=== PATIENT | female | born 1990 ===

== ENCOUNTER 2017-08-09 08:07 | Inpatient (IN) | payer OTHER ==
[2017-08-09 09:00] VITALS: BMI 31.6
[2017-08-09] MEDS ORDERED: Lactated Ringer's 1,000 ML IV ONE (09:15)
[2017-08-09 09:39] LABS: BASO # 0.1 K/uL (0.0-0.2); BASO % 0.7 % (0.0-2.0); EOS % 0.1 % (0.0-4.0); LYMPH # 0.9 K/uL (1.0-4.3); MEAN CELL VOLUME 88.7 fl (81.0-99.0); MEAN CORPUSCULAR HEMOGLOBIN 30.2 pg (27.0-31.0); MONO # 0.4 K/uL (0.0-0.8); MONO % 2.7 % (0.0-10.0); NEUT # 14.2 K/uL (1.8-7.0); NEUT % 90.5 % (50.0-75.0); PLATELET COUNT 267 K/uL (130-400); RBC 4.32 Mil/uL (3.80-5.20); RED CELL DISTRIBUTION WIDTH 13.5 % (11.5-14.5); WHITE BLOOD COUNT 15.6 K/uL (4.8-10.8)
[2017-08-09] MEDS ORDERED: Oxytocin 30 UNITS in Sodium Chloride 0.9% 500 ML IV ONE ×3 (10:00→17:30)
[2017-08-09] MEDS ORDERED: Fentanyl/Bupivacaine HCl 250 ML EPI ONE (11:14)
[2017-08-09 11:23] LABS: BANDS 2 % (0-2); LYMPHOCYTE 6 % (20-50); MONOCYTE 2 % (0-10); NEUTROPHIL 90 % (42-75); PLATELET ESTIMATE NORMAL (NORMAL); TOTAL CELLS COUNTED 100
[2017-08-09] MEDS ORDERED: Lidocaine 1% Inj (20ml) ONE (12:17)
--- NOTE | 2017-08-09 16:03 | OBDS ---
MATERNAL INFORMATION Estimated Blood Loss (ml): 250 Maternal Complications: None Provider Comments: Delivered a baby boy appears term cried spontaneously 9/9, jAF clear Placen ta complete and intact Episiotomy repaired as above, no complications Uterus contracted well, rectal done no complications LABOR SUMMARY EDC: 08/13/2017 00:00 No. Babies in Womb: 1 Attempted: No LABOR INFORMATION Reason for Induction: Not Applicable Onset of Labor: 08/09/2017 09:50 Steroids Given: None Reason Steroids Not Administered: Not Applicable Other Reason Not Administered: n/a MEMBRANES Membranes Rupture Method: Spontaneous Rupture of Membranes: 08/09/2017 08:54 Amniotic Fluid Color: Clear Amniotic Fluid Amount: Moderate Amniotic Fluid Odor: Normal VAGINAL DELIVERY Episiotomy: Median Laceration Extension: First Degree Laceration Type: None Laceration Repair: Yes Laceration Repair Note: episiotomy repaired with 2-0 chromic without any complications Sponge Count Correct: Yes Sharps Count Correct: Yes Count Comment: count correct and verified by RN CSECTION DELIVERY Primary Indication: N/A Secondary Indication: N/A CSection Incision: N/A Uterine Closure: N/A BABY A INFORMATION Forceps: N/A Vacuum Extraction: N/A Shoulder Dystocia : No PRESENTATION/POSITION BABY A Presentation: Cephalic Cephalic Presentation: Vertex Vertex Position: Left Occipital Anterior Breech Presentation: N/A CORD INFORMATION BABY A Nuchal Cord : Around Neck x1, Tight
[2017-08-09] MEDS ORDERED: Oxycodone/Acetaminophen 5/325 mg Tab PO PRN (16:09)
[2017-08-10 07:24] LABS: HEMOGLOBIN 11.1 g/dL (12.0-16.0); MEAN CELL VOLUME 89.4 fl (81.0-99.0); MEAN CORPUSCULAR HEMOGLOBIN 30.4 pg (27.0-31.0); RBC 3.64 Mil/uL (3.80-5.20); RED CELL DISTRIBUTION WIDTH 13.4 % (11.5-14.5); WHITE BLOOD COUNT 14.4 K/uL (4.8-10.8)
[2017-08-10] MEDS ORDERED: Benzocaine/Menthol SPRAY TOP PRN ×2 (09:30→09:33)
[2017-08-10] MEDS ORDERED: Oxycodone/Acetaminophen 5/325 mg Tab PO PRN (09:33)
--- NOTE | 2017-08-10 09:45 | OBPPN ---
Datetime: 08/10/2017 09:42 PP Pain Prov: Within normal limits PP Pain Prov comment: no SOB, chest or leg paiins PP Nausea Prov: Denies PP Flatus Prov: Yes PP BM Prov: No PP Breasts Prov: Normal PP Lungs Prov: Normal PP Abdomen/Uterus Prov: Abnormal PP Lochia Prov: Normal PP Vulva/Perineum Prov: Abnormal PP CVA Tenderness Prov: Normal PP Extremities Prov: Normal PP C/S Incision Prov: Not Applicable PP Progress Prov: Normal PP Comments Phys Exam Prov: breast not engorged NT, abd soft nd, fundus firm below the umb NT Perine um repaired Ext no edema or calf tenderness PP Impression Prov: Normal progression PP Plan Prov: Continue present management PP Progress Note Prov: CBC stat_ble ContinuePP care OOB and ambulation IP PP Procedures: None
--- NOTE | 2017-08-11 12:49 | OBDCSUM ---
Datetime: 08/11/2017 12:47 Discharged to, Provider: Home Follow up at, Provider: Dr Buitrago Disch Instr Activity: Bedrest; May be up to bathroom; May be up for meals; May Shower Disch Instr Diet: Regular Discharge Instructions, Provider: Routine instructions given Discharge Diagnosis, Provider: Term Delivered Discharge Time: 08/11/2017 12:47 Follow up in weeks, Provider: 4-6 wks Disch Referrals: None Contraception discussed, Prov: Yes Disch Activity Restrictions: No exercising; No lifting; No driving; Minimize walking; Minimize stair -climbing; No sexual activity; Nothing in vagina - [place], tampons, douche Discharge Comment, Provider: was given Rhogam Continue PP care and folllow up office Contraception after Delivery: Undecided
--- NOTE | 2017-08-11 12:49 | OBPPN ---
Datetime: 08/11/2017 12:44 PP Pain Prov: Within normal limits PP Pain Prov comment: No SOB, chest or leg pains PP Nausea Prov: Denies PP Flatus Prov: Yes PP Breasts Prov: Normal PP Lungs Prov: Normal PP Abdomen/Uterus Prov: Abnormal PP Lochia Prov: Normal PP Vulva/Perineum Prov: Abnormal PP CVA Tenderness Prov: Normal PP Extremities Prov: Abnormal PP C/S Incision Prov: Not Applicable PP Progress Prov: Normal PP Comments Phys Exam Prov: breast not engorged; Abd soft not distended fundus firm below the umb NT , Perineum repaired Ext mild matthias pedal edema but no calf tenderness PP Progress Note Prov: D/C home with instructions Vital Signs Provider PP: Reviewed
[2017-08-11 20:53] VITALS: BP 121/76; PULSE 71; RESP 20; TEMP 98.3; O2SAT 100
== END 2017-08-11 16:45 | disposition home or self-care (01) | DRG 775 ==
LOC: H.EROB2 08:07 → H.EROB 08:18 → H.L&D 09:12 → H.EROB2 09:29 → H.OB/GYN 20:02
PROVIDERS: ADMIT Specialist; ATTEND Specialist
PROC: 0W8NXZZ Division of Female Perineum, External Approach (ICD-10-PCS; principal; 2017-08-09)
PROC: 10E0XZZ Delivery of Products of Conception, External Approach (ICD-10-PCS; 2017-08-09)
PROC: 4A1HXCZ Monitoring of Products of Conception, Cardiac Rate, External Approach (ICD-10-PCS; 2017-08-09)
DX: O69.81X0 Labor and delivery complicated by cord around neck, without compression, not applicable or unspecified (principal); O70.0 First degree perineal laceration during delivery; Z37.0 Single live birth; Z3A.39 39 weeks gestation of pregnancy